=== PATIENT | female | born 2000 | race Hispanic/Latino ===

== ENCOUNTER 2021-07-06 06:59 | Emergency (ER) | payer SELFPAY ==
[~2021-07-06] VITALS: Ht 160 cm; Wt 104.0 kg
[2021-07-06 07:09] VITALS: BP 111/84
[2021-07-06 07:16] VITALS: BP 143/92
[2021-07-06] MEDS ORDERED: LOSARTAN POTASS25 MG PO (07:20)
[2021-07-06] MEDS ORDERED: LASIX 20 MG TAB20 MG PO (07:20)
[2021-07-06] MEDS ORDERED: VIT C/VIT E PO (07:20)
[2021-07-06] MEDS ORDERED: LIPITOR10 M1 PO (07:20)
[2021-07-06] MEDS ORDERED: HUMALOG100 MG/ML (07:21)
[2021-07-06] MEDS ORDERED: NOVOLOG MIX100 U/ML SC (07:21)
[2021-07-06] MEDS ORDERED: HUMULIN 70/30 SC (07:22)
[2021-07-06 07:41] LABS: HEMATOCRIT 42.8 % (37.0-47.0); HEMOGLOBIN 14.1 g/dl (12.0-16.0); IMMATURE GRANULOCYTES 0.2 % (0.0-5.0); MEAN CELL VOLUME 86.6 fL CALC (80.0-100.0); MEAN CORPUSCULAR HGB 28.5 pG CALC (26.0-32.0); MEAN CORPUSCULAR HGB CONC 32.9 g/dL CAL (32.0-36.0); NEUT# 6.53 thou/uL (2.00-7.15); RED BLOOD COUNT 4.94 mill/uL (4.20-5.60); RED CELL DISTRI WIDTH 13.2 % (11.5-15.5)
[2021-07-06 07:43] VITALS: BP 137/109
[2021-07-06 07:43] LABS: URINE BILIRUBIN - DIPSTICK NEGATIVE (NEGATIVE); URINE BLOOD DIPSTICK NEGATIVE (NEGATIVE); URINE COLOR YELLOW; URINE GLUCOSE - DIPSTICK NEGATIVE (NEGATIVE); URINE KETONE NEGATIVE (NEGATIVE); URINE LEUK ESTERASE NEGATIVE (NEGATIVE); URINE PH 5.5 (4.5-8.0); URINE PROTEIN - DIPSTICK NEGATIVE (NEG-TRACE); URINE SPECIFIC GRAVITY >=1.030; URINE UROBILINOGEN - DIPSTICK 0.2 E.U./dL (0.2)
[2021-07-06 07:45] LABS: URINE NITRITE - DIPSTICK NEGATIVE (Negative)
[2021-07-06 07:59] LABS: ALBUMIN 4.5 g/dL (3.2-5.0); ALKALINE PHOSPHATASE 54 u/l (38-126); ANION GAP 17 (6-22 (CALC)); BILIRUBIN, TOTAL 0.5 mg/dL (0.0-1.4); BUN 14 mg/dL (7-17); BUN/CREATININE RATIO 21 (12-20 (CALC)); CARBON DIOXIDE 23 mmol/l (22-30); CHLORIDE 102 mmol/l (95-108); CREATININE 0.7 mg/dL (0.5-1.0); GFR > 60 ML/MIN (>=60 (CALC)); GFR FOR AFR.AMER. > 60 ML/MIN (>=60 (CALC)); POTASSIUM 4.3 mmol/l (3.5-5.1); SGOT/AST 34 u/l (14-36); SODIUM 138 mmol/l (137-146); TOTAL PROTEIN 8.2 g/dL (6.3-8.2)
[2021-07-06 08:54] VITALS: BP 116/91
[2021-07-06 08:56] VITALS: BP 116/91
== END 2021-07-06 09:04 | disposition home or self-care (01) | DRG 639 ==
LOC: ED 06:59
PROVIDERS: Family Medicine
DX: E11.65 Type 2 diabetes mellitus with hyperglycemia (principal); E66.9 Obesity, unspecified; I10 Essential (primary) hypertension; Z79.4 Long term (current) use of insulin

== ENCOUNTER 2021-12-18 14:10 | Emergency (ER) | payer BC ==
[~2021-12-18] VITALS: Ht 160 cm; Wt 100.0 kg
[~2021-12-18 14:10] MED LIST: HUMALOG100 MG/ML; HUMULIN 70/30 SC; LASIX 20 MG TAB20 MG PO; LIPITOR10 M1 PO; LOSARTAN POTASS25 MG PO; NOVOLOG MIX100 U/ML SC; VIT C/VIT E PO
[2021-12-18 14:17] VITALS: BP 133/87
[2021-12-18 14:36] VITALS: BP 133/88
[2021-12-18 14:46] VITALS: BP 147/100
[2021-12-18 15:01] VITALS: BP 142/89
[2021-12-18 15:16] VITALS: BP 130/85
[2021-12-18 15:31] VITALS: BP 123/78
[2021-12-18] MEDS ORDERED: ALLERGY RELF10 M3 PO ×2 (17:30→17:47)
[2021-12-18] MEDS ORDERED: PREDNISONE50 MG PO ×2 (17:30→17:47)
[2021-12-18] MEDS ORDERED: EPIPEN 2-P0.3 MG/0.3 IM ×2 (17:30→17:47)
== END 2021-12-18 17:53 | disposition home or self-care (01) | DRG 916 ==
LOC: ED 14:10
DX: T78.40XA Allergy, unspecified, initial encounter (principal); I10 Essential (primary) hypertension; E11.9 Type 2 diabetes mellitus without complications; X58.XXXA Exposure to other specified factors, initial encounter; Z79.4 Long term (current) use of insulin

== ENCOUNTER 2022-02-12 16:18 | Emergency (ER) | payer BC ==
[~2022-02-12] VITALS: Ht 160 cm; Wt 100.0 kg
[~2022-02-12 16:18] MED LIST changes: +ALLERGY RELF10 M3 PO; +EPIPEN 2-P0.3 MG/0.3 IM; +PREDNISONE50 MG PO
[2022-02-12] MEDS ORDERED: TRESIBA FL100 UNIT/M (16:32)
[2022-02-12] MEDS ORDERED: FIASP FLEX100 UNIT/M (16:33)
[2022-02-12 17:01] VITALS: BP 114/80
[2022-02-12 19:03] LABS: URINE BILIRUBIN - DIPSTICK NEGATIVE (NEGATIVE); URINE BLOOD DIPSTICK NEGATIVE (NEGATIVE); URINE COLOR YELLOW; URINE GLUCOSE - DIPSTICK 500 mg/dL (NEGATIVE); URINE KETONE NEGATIVE (NEGATIVE); URINE LEUK ESTERASE NEGATIVE (NEGATIVE); URINE NITRITE - DIPSTICK NEGATIVE (Negative); URINE PROTEIN - DIPSTICK NEGATIVE (NEG-TRACE); URINE SPECIFIC GRAVITY 1.025; URINE UROBILINOGEN - DIPSTICK 0.2 E.U./dL (0.2)
[2022-02-12 19:26] LABS: HEMATOCRIT 46.1 % (37.0-47.0); HEMOGLOBIN 14.9 g/dl (12.0-16.0); IMMATURE GRANULOCYTES 0.2 % (0.0-5.0); MEAN CELL VOLUME 87.6 fL CALC (80.0-100.0); MEAN CORPUSCULAR HGB 28.3 pG CALC (26.0-32.0); MEAN CORPUSCULAR HGB CONC 32.3 g/dL CAL (32.0-36.0); NEUT# 3.23 thou/uL (2.00-7.15); RED BLOOD COUNT 5.26 mill/uL (4.20-5.60)
[2022-02-12 19:39] LABS: ALBUMIN 5.3 g/dL (3.2-5.0); ALKALINE PHOSPHATASE 76 u/l (38-126); AMYLASE 65 u/l (30-110); ANION GAP 22 (6-22 (CALC)); BILIRUBIN, TOTAL 0.4 mg/dL (0.0-1.4); BUN 12 mg/dL (7-17); BUN/CREATININE RATIO 19 (12-20 (CALC)); CARBON DIOXIDE 20 mmol/l (22-30); CHLORIDE 101 mmol/l (95-108); CREATININE 0.6 mg/dL (0.5-1.0); GFR FOR AFR.AMER. > 60 ML/MIN (>=60 (CALC)); GFR OTHER RACES > 60 ML/MIN (>=60 (CALC)); LIPASE 59 u/l (23-300); POTASSIUM 4.4 mmol/l (3.5-5.1); SGOT/AST 36 u/l (14-36); SODIUM 138 mmol/l (137-146); TOTAL PROTEIN 8.6 g/dL (6.3-8.2)
[2022-02-12] MEDS ORDERED: LOMOTIL2.5 MG PO (21:42)
[2022-02-12 22:58] VITALS: BP 95/72
[2022-02-12 23:01] VITALS: BP 94/55
[2022-02-12 23:31] VITALS: BP 92/58
[2022-02-13 01:03] VITALS: BP 105/55
[2022-02-13 01:31] VITALS: BP 110/59
[2022-02-13 02:01] VITALS: BP 109/53
[2022-02-13 02:31] VITALS: BP 96/54
[2022-02-13 05:36] VITALS: BP 110/81
== END 2022-02-12 22:04 | disposition home or self-care (01) | DRG 392 ==
LOC: ED 16:18
PROVIDERS: Emergency Medicine
DX: K52.9 Noninfective gastroenteritis and colitis, unspecified (principal)
CPT/HCPCS: Q9967

== ENCOUNTER 2022-07-02 06:20 | Emergency (ER) | payer BC ==
[2022-07-02] VITALS (13 sets, daily range): BP systolic 120–151; BP diastolic 83–105
[~2022-07-02] VITALS: Ht 160 cm; Wt 104.0 kg
[~2022-07-02 06:20] MED LIST changes: +FIASP FLEX100 UNIT/M; +LOMOTIL2.5 MG PO; +TRESIBA FL100 UNIT/M
[2022-07-02 07:13] LABS: BASO% 0.4 % (0-3); EOS% 2.9 % (0-8); HEMATOCRIT 43.7 % (37.0-47.0); HEMOGLOBIN 14.3 g/dl (12.0-16.0); IMMATURE GRANULOCYTES 0.2 % (0.0-5.0); LYMPH% 17.2 % (15-41); MEAN CELL VOLUME 85.5 fL CALC (80.0-100.0); MEAN CORPUSCULAR HGB CONC 32.7 g/dL CAL (32.0-36.0); MONO% 7.6 % (2-13); NEUT# 10.14 thou/uL (2.00-7.15); NEUT% 71.7 % (42-76); RED BLOOD COUNT 5.11 mill/uL (4.20-5.60); RED CELL DISTRI WIDTH 12.6 % (11.5-15.5)
[2022-07-02 07:25] LABS: ALBUMIN 4.7 g/dL (3.2-5.0); ALKALINE PHOSPHATASE 79 u/l (38-126); ANION GAP 13 (6-22 (CALC)); BILIRUBIN, TOTAL 0.5 mg/dL (0.02-1.3); BUN 14 mg/dL (7-17); BUN/CREATININE RATIO 23 (12-20 (CALC)); CARBON DIOXIDE 28 mmol/l (22-30); CHLORIDE 100 mmol/l (95-108); CREATININE 0.6 mg/dL (0.5-1.0); GFR FOR AFR.AMER. > 60 ML/MIN (>=60 (CALC)); GFR OTHER RACES > 60 ML/MIN (>=60 (CALC)); POTASSIUM 4.8 mmol/l (3.5-5.1); SGOT/AST 32 u/l (14-36); SODIUM 136 mmol/l (137-146); TOTAL PROTEIN 8.3 g/dL (6.3-8.2)
[2022-07-02 07:26] LABS: ACT PARTIAL THROMBO TIME 26.5 SECONDS (20.0-32.5); PROTHROMBIN TIME 9.7 SECONDS (9.0-12.5)
[2022-07-02 07:29] LABS: D-DIMER 0.18 mg/L (0.19-0.60)
[2022-07-02] MEDS ORDERED: DECADRON4 MG PO (10:12)
== END 2022-07-02 11:41 | disposition home or self-care (01) | DRG 203 ==
LOC: ED 06:20
PROVIDERS: Family Medicine
DX: J98.01 Acute bronchospasm (principal); R06.00 Dyspnea, unspecified; I10 Essential (primary) hypertension; E11.9 Type 2 diabetes mellitus without complications; Z79.4 Long term (current) use of insulin; Z20.822 Contact with and (suspected) exposure to COVID-19; Z86.16 Personal history of COVID-19

== ENCOUNTER 2022-07-09 15:43 | Emergency (ER) | payer BC ==
[~2022-07-09] VITALS: Ht 160 cm; Wt 104.3 kg
[~2022-07-09 15:43] MED LIST changes: +DECADRON4 MG PO
[2022-07-09 16:24] VITALS: BP 130/83
[2022-07-09 16:26] LABS: BASO% 0.1 % (0-3); EOS% 0.2 % (0-8); HEMATOCRIT 47.8 % (37.0-47.0); HEMOGLOBIN 15.7 g/dl (12.0-16.0); IMMATURE GRANULOCYTES 1.2 % (0.0-5.0); MEAN CELL VOLUME 83.7 fL CALC (80.0-100.0); MEAN CORPUSCULAR HGB 27.5 pG CALC (26.0-32.0); MEAN CORPUSCULAR HGB CONC 32.8 g/dL CAL (32.0-36.0); MONO% 1.5 % (2-13); NEUT# 17.26 thou/uL (2.00-7.15); RED BLOOD COUNT 5.71 mill/uL (4.20-5.60); RED CELL DISTRI WIDTH 12.5 % (11.5-15.5)
[2022-07-09 16:30] VITALS: BP 121/78
[2022-07-09 16:40] LABS: ALBUMIN 4.9 g/dL (3.2-5.0); ANION GAP 19 (6-22 (CALC)); BUN 20 mg/dL (7-17); BUN/CREATININE RATIO 28 (12-20 (CALC)); CARBON DIOXIDE 23 mmol/l (22-30); CHLORIDE 97 mmol/l (95-108); CREATININE 0.7 mg/dL (0.5-1.0); GFR FOR AFR.AMER. > 60 ML/MIN (>=60 (CALC)); GFR OTHER RACES > 60 ML/MIN (>=60 (CALC)); POTASSIUM 4.7 mmol/l (3.5-5.1); SGOT/AST 32 u/l (14-36); SODIUM 134 mmol/l (137-146); TOTAL PROTEIN 8.5 g/dL (6.3-8.2)
[2022-07-09 17:00] VITALS: BP 117/75
[2022-07-09 17:00] LABS: ALKALINE PHOSPHATASE 124 u/l (38-126); BILIRUBIN, TOTAL 0.2 mg/dL (0.02-1.3)
[2022-07-09 17:27] LABS: URINE BILIRUBIN - DIPSTICK NEGATIVE (NEGATIVE); URINE BLOOD DIPSTICK NEGATIVE (NEGATIVE); URINE COLOR YELLOW; URINE GLUCOSE - DIPSTICK >=1000 mg/dL (NEGATIVE); URINE KETONE NEGATIVE (NEGATIVE); URINE LEUK ESTERASE NEGATIVE (NEGATIVE); URINE PROTEIN - DIPSTICK NEGATIVE (NEG-TRACE); URINE UROBILINOGEN - DIPSTICK 0.2 E.U./dL (0.2)
[2022-07-09 17:29] LABS: URINE NITRITE - DIPSTICK NEGATIVE (Negative)
[2022-07-09 18:00] VITALS: BP 133/94
== END 2022-07-09 18:22 | disposition home or self-care (01) | DRG 638 ==
LOC: ED 15:43
PROVIDERS: Family Medicine
DX: E11.65 Type 2 diabetes mellitus with hyperglycemia (principal); K51.90 Ulcerative colitis, unspecified, without complications; I10 Essential (primary) hypertension; Z79.4 Long term (current) use of insulin

== ENCOUNTER 2022-09-04 00:56 | Emergency (ER) | payer BC ==
[~2022-09-04] VITALS: Ht 157.5 cm; Wt 104.3 kg
[~2022-09-04 00:56] MED LIST changes: -TRESIBA FL100 UNIT/M; +TRESIBA FL100 UNIT/M SC
[2022-09-04 01:13] VITALS: BP 96/55
[2022-09-04 01:30] VITALS: BP 117/80
[2022-09-04 01:45] VITALS: BP 113/83
[2022-09-04 02:00] VITALS: BP 118/73
[2022-09-04 02:00] LABS: BASO% 0.3 % (0-3); EOS% 3.6 % (0-8); HEMOGLOBIN 13.8 g/dl (12.0-16.0); IMMATURE GRANULOCYTES 0.2 % (0.0-5.0); LYMPH% 34.7 % (15-41); MEAN CELL VOLUME 85.1 fL CALC (80.0-100.0); MEAN CORPUSCULAR HGB CONC 34.1 g/dL CAL (32.0-36.0); MONO% 7.2 % (2-13); NEUT# 6.25 thou/uL (2.00-7.15); RED BLOOD COUNT 4.76 mill/uL (4.20-5.60); RED CELL DISTRI WIDTH 12.4 % (11.5-15.5)
[2022-09-04 02:06] LABS: HEMATOCRIT 40.5 % (37.0-47.0)
[2022-09-04 02:12] LABS: ALBUMIN 4.8 g/dL (3.2-5.0); ALKALINE PHOSPHATASE 71 u/l (38-126); ANION GAP 15 (6-22 (CALC)); BUN 19 mg/dL (7-17); BUN/CREATININE RATIO 28 (12-20 (CALC)); CARBON DIOXIDE 25 mmol/l (22-30); CHLORIDE 101 mmol/l (95-108); CPK 113 u/l (30-135); CREATININE 0.7 mg/dL (0.5-1.0); GFR FOR AFR.AMER. > 60 ML/MIN (>=60 (CALC)); GFR OTHER RACES > 60 ML/MIN (>=60 (CALC)); POTASSIUM 4.3 mmol/l (3.5-5.1); SGOT/AST 38 u/l (14-36); SODIUM 136 mmol/l (137-146)
[2022-09-04 02:13] LABS: ACT PARTIAL THROMBO TIME 26.6 SECONDS (20.0-32.5); PROTHROMBIN TIME 9.9 SECONDS (9.0-12.5)
[2022-09-04 02:15] VITALS: BP 121/66
[2022-09-04 02:15] LABS: BILIRUBIN, TOTAL 0.4 mg/dL (0.02-1.3)
[2022-09-04 02:44] LABS: D-DIMER 0.17 mg/L (0.19-0.60)
[2022-09-04 02:51] LABS: URINE BILIRUBIN - DIPSTICK NEGATIVE (NEGATIVE); URINE BLOOD DIPSTICK NEGATIVE (NEGATIVE); URINE COLOR YELLOW; URINE GLUCOSE - DIPSTICK NEGATIVE (NEGATIVE); URINE KETONE TRACE mg/dL (NEGATIVE); URINE LEUK ESTERASE NEGATIVE (NEGATIVE); URINE PH 5.5 (4.5-8.0); URINE PROTEIN - DIPSTICK NEGATIVE (NEG-TRACE); URINE SPECIFIC GRAVITY 1.025; URINE UROBILINOGEN - DIPSTICK 0.2 E.U./dL (0.2)
[2022-09-04 02:53] LABS: URINE NITRITE - DIPSTICK NEGATIVE (Negative)
[2022-09-04] MEDS ORDERED: ALDACTONE50 MG PO (03:20)
[2022-09-04] MEDS ORDERED: LASIX 20 MG TAB20 MG PO (03:20)
[2022-09-04 03:50] VITALS: BP 121/66
== END 2022-09-04 03:56 | disposition home or self-care (01) | DRG 948 ==
LOC: ED 00:56
PROVIDERS: Family Medicine
DX: R60.0 Localized edema (principal); I10 Essential (primary) hypertension; E11.9 Type 2 diabetes mellitus without complications; Z79.4 Long term (current) use of insulin

== ENCOUNTER 2022-09-29 20:43 | Emergency (ER) | payer OTHER, BC ==
[~2022-09-29] VITALS: Ht 157.5 cm; Wt 108.0 kg
[~2022-09-29 20:43] MED LIST changes: +ALDACTONE50 MG PO
[2022-09-29 21:50] VITALS: BP 142/99
== END 2022-09-29 22:03 | disposition home or self-care (01) | DRG 605 ==
LOC: ED 20:43
DX: S50.11XA Contusion of right forearm, initial encounter (principal); S54.21XA Injury of radial nerve at forearm level, right arm, initial encounter; E11.9 Type 2 diabetes mellitus without complications; I10 Essential (primary) hypertension; W20.8XXA Other cause of strike by thrown, projected or falling object, initial encounter; Y93.89 Activity, other specified; Y99.0 Civilian activity done for income or pay; Z79.4 Long term (current) use of insulin

== ENCOUNTER 2023-06-10 20:24 | Emergency (ER) | payer BC ==
[~2023-06-10] VITALS: Ht 157.5 cm; Wt 108.9 kg
[~2023-06-10 20:24] MED LIST changes: +DICYCLOMINE HCL20 MG PO; +EPIPEN 2-P0.3 MG/0.3 SC; +HUMULIN R500 UNIT/1; +ONDANSETRON4 MG PO; +PERCOCET 5/321 COMBO PO; +PROTONIX40 M2 PO; +RYBELSUS14 MG; +VENTOLIN HFA108 MCG IN
[2023-06-10 22:24] VITALS: BP 125/97
[2023-06-10 22:30] VITALS: BP 131/84
[2023-06-10 22:50] LABS: BASO% 0.4 % (0-3); EOS% 1.3 % (0-8); HEMATOCRIT 45.5 % (37.0-47.0); HEMOGLOBIN 15.4 g/dl (12.0-16.0); IMMATURE GRANULOCYTES 0.2 % (0.0-5.0); LYMPH% 31.3 % (15-41); MEAN CELL VOLUME 85.4 fL CALC (80.0-100.0); MEAN CORPUSCULAR HGB 28.9 pG CALC (26.0-32.0); MEAN CORPUSCULAR HGB CONC 33.8 g/dL CAL (32.0-36.0); MONO% 6.3 % (2-13); NEUT# 6.24 thou/uL (2.00-7.15); NEUT% 60.5 % (42-76); RED BLOOD COUNT 5.33 mill/uL (4.20-5.60); RED CELL DISTRI WIDTH 12.2 % (11.5-15.5)
[2023-06-10 22:52] LABS: URINE BILIRUBIN - DIPSTICK Negative (NEGATIVE); URINE BLOOD DIPSTICK Trace-intact (NEGATIVE); URINE COLOR Yellow; URINE GLUCOSE - DIPSTICK 500 mg/dL (NEGATIVE); URINE KETONE 15 mg/dL (NEGATIVE); URINE LEUK ESTERASE Negative (NEGATIVE); URINE NITRITE - DIPSTICK Negative (Negative); URINE PROTEIN - DIPSTICK Negative (NEG-TRACE); URINE UROBILINOGEN - DIPSTICK 0.2 E.U./dL (0.2)
[2023-06-10 23:00] VITALS: BP 130/85
[2023-06-10 23:11] LABS: ALBUMIN 5.1 g/dL (3.2-5.0); ALKALINE PHOSPHATASE 86 u/l (38-126); AMYLASE 61 u/l (30-110); ANION GAP 16 (6-22 (CALC)); BILIRUBIN, TOTAL 0.4 mg/dL (0.02-1.3); BUN 19 mg/dL (7-17); BUN/CREATININE RATIO 28 (12-20 (CALC)); CARBON DIOXIDE 25 mmol/l (22-30); CHLORIDE 101 mmol/l (95-108); CREATININE 0.7 mg/dL (0.5-1.0); GFR FOR AFR.AMER. > 60 ML/MIN (>=60 (CALC)); GFR OTHER RACES > 60 ML/MIN (>=60 (CALC)); LIPASE 55 u/l (23-300); POTASSIUM 4.2 mmol/l (3.5-5.1); SGOT/AST 40 u/l (14-36); SODIUM 138 mmol/l (137-146); TOTAL PROTEIN 8.8 g/dL (6.3-8.2)
[2023-06-10 23:30] VITALS: BP 125/81
[2023-06-10] MEDS ORDERED: SODIUM CHLORIDE 0.9% 1,000 ML IV ONE (23:40)
[2023-06-11 00:01] VITALS: BP 139/89
[2023-06-11 00:30] VITALS: BP 147/78
[2023-06-11 01:01] VITALS: BP 124/102
[2023-06-11 01:31] VITALS: BP 127/81
[2023-06-11] MEDS ORDERED: KETOROLAC TROMETHAMINE 30 MG/ML SDV IM ONE (01:35)
[2023-06-11 04:07] VITALS: BP 127/81
== END 2023-06-11 04:18 | disposition home or self-care (01) | DRG 392 ==
LOC: ED 20:24
PROVIDERS: Family Medicine
DX: R10.9 Unspecified abdominal pain (principal); I10 Essential (primary) hypertension; E11.9 Type 2 diabetes mellitus without complications; Z79.4 Long term (current) use of insulin